=== PATIENT | female | born 1950 | race Caucasian/White ===

== ENCOUNTER → 2017-02-23 | Outpatient (CLI) | payer OTHER ==
[~2017-02-23] VITALS: Ht 160 cm; Wt 64.9 kg
== END ==
LOC: OPSV 12:30
DX: M81.0 Age-related osteoporosis without current pathological fracture (principal)
CPT/HCPCS: 96372

== ENCOUNTER → 2021-07-24 | Outpatient (CLI) | payer OTHER | LOC: MRI 10:55 | DX: M75.102 Unspecified rotator cuff tear or rupture of left shoulder, not specified as traumatic (principal) | CPT/HCPCS: 73221 ==

== ENCOUNTER → 2021-08-19 | Outpatient (CLI) | payer OTHER ==
[~2021-08-19] MED LIST: BAYER CHEWABLE81 MG PO; ELIQUIS 5 MG TAB5 MG PO; ENDOCET 5-3251 EACH PO; FOSAMAX70 MG PO; GLIPIZIDE ER5 MG PO; LOSARTAN POTASS25 MG PO; METFORMIN HCL1000 MG PO; OMNICEF 300 MG300 MG PO; SYNTHROID125 MCG PO
[2021-08-19 12:59] LABS: BUN/CREATININE RATIO 29 (0-10)
[2021-08-19 13:30] LABS: HEMOGLOBIN 14.8 gm/dl (12.3-15.3); RED BLOOD COUNT 4.66 M/UL (4.00-5.10); WHITE BLOOD COUNT 8.2 K/UL (4.5-11.0)
== END ==
LOC: OPSV2 11:00
PROVIDERS: Orthopaedic Surgery
DX: Z01.818 Encounter for other preprocedural examination (principal); M75.02 Adhesive capsulitis of left shoulder
CPT/HCPCS: 36415; 71046; 80048; 83036; 85025; 93005

== ENCOUNTER 2021-08-26 07:12 | Emergency (ER) | payer OTHER ==
[~2021-08-26 07:12] MED LIST changes: -OMNICEF 300 MG300 MG PO
[2021-08-26 07:38] LABS: HEMOGLOBIN 14.3 gm/dl (12.3-15.3); RED BLOOD COUNT 4.58 M/UL (4.00-5.10); WHITE BLOOD COUNT 9.9 K/UL (4.5-11.0)
[2021-08-26 09:11] LABS: BUN/CREATININE RATIO 31 (0-10)
[2021-08-26] MEDS ORDERED: OMNICEF 300 MG300 MG PO (12:17)
== END 2021-08-26 16:58 | disposition home or self-care (01) ==
LOC: ER1 07:12
PROVIDERS: Physician Assistant
DX: R00.0 Tachycardia, unspecified (principal); N39.0 Urinary tract infection, site not specified; I25.2 Old myocardial infarction; I11.9 Hypertensive heart disease without heart failure; E03.9 Hypothyroidism, unspecified; Z90.710 Acquired absence of both cervix and uterus; Z79.01 Long term (current) use of anticoagulants; Z88.6 Allergy status to analgesic agent; Z88.8 Allergy status to other drugs, medicaments and biological substances
CPT/HCPCS: 70496; 71045; 80053; 81001; 82550; 82553; 83874; 84439; 84443; 84484; 85025; 87077; 87086; 87186; 93005; 96374; 99285; J0696; J7040; Q9967

== ENCOUNTER → 2021-08-26 | Day surgery (SDC) | payer OTHER | END | disposition home or self-care (01) | LOC: OR 05:27 | DX: M75.02 Adhesive capsulitis of left shoulder (principal); I11.9 Hypertensive heart disease without heart failure; E78.5 Hyperlipidemia, unspecified; I25.10 Atherosclerotic heart disease of native coronary artery without angina pectoris; I25.2 Old myocardial infarction; I48.91 Unspecified atrial fibrillation; E11.9 Type 2 diabetes mellitus without complications; M19.90 Unspecified osteoarthritis, unspecified site; F17.210 Nicotine dependence, cigarettes, uncomplicated; F41.9 Anxiety disorder, unspecified; F32.A Depression, unspecified; E03.9 Hypothyroidism, unspecified; Z53.8 Procedure and treatment not carried out for other reasons; Z95.818 Presence of other cardiac implants and grafts; Z79.01 Long term (current) use of anticoagulants; Z79.82 Long term (current) use of aspirin; Z79.84 Long term (current) use of oral hypoglycemic drugs; Z79.899 Other long term (current) drug therapy; Z90.710 Acquired absence of both cervix and uterus; Z90.49 Acquired absence of other specified parts of digestive tract; Z88.8 Allergy status to other drugs, medicaments and biological substances | CPT/HCPCS: 82962; J2001; J2405; J2704; J7030; J7120 ==

== ENCOUNTER → 2021-09-27 | Outpatient (CLI) | payer OTHER ==
[~2021-09-27] MED LIST changes: +COREG3.125 MG PO; +NITROGLYCERIN0.4 MG SL; +OMNICEF 300 MG300 MG PO; +PERCOCET 5/325 T1 EA PO
[2021-09-27 11:26] LABS: HEMOGLOBIN 14.1 gm/dl (12.3-15.3); RED BLOOD COUNT 4.38 M/UL (4.00-5.10); WHITE BLOOD COUNT 9.9 K/UL (4.5-11.0)
[2021-09-27 11:47] LABS: BUN/CREATININE RATIO 29 (0-10)
== END ==
LOC: OPSV2 10:00
PROVIDERS: Orthopaedic Surgery
DX: Z01.812 Encounter for preprocedural laboratory examination (principal)
CPT/HCPCS: 80048; 85025

== ENCOUNTER → 2021-09-30 | Day surgery (SDC) | payer OTHER | END | disposition home or self-care (01) | LOC: OR 05:35 | DX: M75.02 Adhesive capsulitis of left shoulder (principal); E11.9 Type 2 diabetes mellitus without complications; I10 Essential (primary) hypertension; I25.10 Atherosclerotic heart disease of native coronary artery without angina pectoris; F17.210 Nicotine dependence, cigarettes, uncomplicated; Z90.49 Acquired absence of other specified parts of digestive tract; Z90.710 Acquired absence of both cervix and uterus; Z88.6 Allergy status to analgesic agent; Z79.82 Long term (current) use of aspirin; E78.5 Hyperlipidemia, unspecified; Z20.822 Contact with and (suspected) exposure to COVID-19 | CPT/HCPCS: 76000; 82962; J1100; J1885; J2274; J2405; J2704; J3010; J3301; J7030; J7120 ==